=== PATIENT | male | born 1950 | race Caucasian/White ===

== ENCOUNTER 2016-11-13 08:26 | Day surgery (SDC) | payer MEDICARE, OTHER ==
[~2016-11-13 08:26] MED LIST: 5FU; AUGMENTIN 875-1 EAC2 PO; CELEXA20 M2 PO; COLACE100 M1 PO; LEXAPRO10 M2 PO; LEXAPRO10 MG; MIRALAX17 G2 PO; NORCO 5-325 TA1 EACH PO; OMEPRAZOLE20 M3 PO; PEPCID20 MG; PERCOCET 5-3251 EACH PO; STOP HOME MEDICATION; TOPROL XL25 M1 PO; TRAZODONE HCL50 M1 PO; XANAX0.5 M1 PO
[2016-11-13 09:18] LABS: BASO % 0.5 % (0-2); EOS % 4.7 % (0-7); EOSINOPHIL ABSOLUTE COUNT 0.3 tho/cmm (0.0-0.7); HCT-HEMATOCRIT 34.4 % (36.0-53.5); HGB-HEMOGLOBIN 10.3 gm/dl (13.5-17.0); IMMATURE GRANULOCYTES ABSOLUTE 0.01 tho/cmm (0-0.03); IMMATURE GRANULOCYTES PERCENT 0.2 % (0-0.3); LYMPH % 21.1 % (20-45); LYMPH ABSOLUTE COUNT 1.2 tho/cmm (0.8-4.5); MCHC MEAN CORPUSCULAR HGB CONC 29.9 % (32.0-36.0); MCV (MEAN CELL VOLUME) 73.5 fl (82.0-96.0); MEAN PLATELET VOLUME 9.9 cmc (9.4-12.4); MONO % 3.8 % (0-12); MONOCYTE ABSOLUTE COUNT 0.2 tho/cmm (0.0-1.2); NEUTROPHIL ABSOLUTE COUNT 3.9 tho/cmm (1.6-8.0); NEUTROPHIL-AUTOMATED 3.9 tho/cmm (1.6-8.0); NEUTROPHILS % 69.7 % (40-80); PLATELET COUNT 287 tho/cmm (150-450); RED BLOOD COUNT 4.68 mil/cmm (4.40-5.70); WHITE BLOOD COUNT 5.6 tho/cmm (4.0-10.0)
[2016-11-13 09:19] LABS: INR 1.2 INR (0.9-1.1); PROTHROMBIN TIME 13.9 SECONDS (9.0-13.6)
[2016-11-13 09:30] LABS: ALB/GLOB RATIO 0.9 (0.8-2.0); ALBUMIN 3.3 g/dl (3.5-5.0); ALKALINE PHOSPHATASE 180 U/L (33-138); ALT/SGPT 29 U/L (12-78); ANION GAP 12 mmol/L (0-20); AST/SGOT 29 U/L (10-40); BILIRUBIN,TOTAL 0.7 mg/dl (0.0-1.5); BLOOD UREA NITROGEN 10 mg/dl (6-24); CALCIUM 8.3 mg/dl (8.5-10.5); CARBON DIOXIDE-VENOUS 25 mmol/L (22-32); CHLORIDE 111 mmol/l (96-110); CREATININE 0.62 mg/dl (0.60-1.30); GLUCOSE 91 mg/dL (70-110); POTASSIUM 3.8 mmol/L (3.7-5.1); SODIUM 144 mmol/L (135-145); eGFR VALUE FOR BLACK >90 mL/Min
[2017-01-09] MEDS ORDERED: CIPRO500 M2 PO (08:21)
[2017-01-09] MEDS ORDERED: MEDROL4 M2 PO (08:22)
[2017-01-09] MEDS ORDERED: PERCOCET 5-3251 EACH PO (08:30)
[2017-03-07] MEDS ORDERED: AUGMENTIN 875-1 EAC2 PO (12:02)
[2017-03-07] MEDS ORDERED: ACIDOPHILUS1 EAC3 PO (12:03)
== END 2016-11-13 18:40 ==
LOC: RADSP 08:26 → SHSC 08:28 → PACU 12:43 → SHSC 14:05
PROVIDERS: Radiology Diagnostic Radiology
PROC: 04L33DZ Occlusion of Hepatic Artery with Intraluminal Device, Percutaneous Approach (ICD-10-PCS; principal; 2016-11-13)
DX: C78.7 Secondary malignant neoplasm of liver and intrahepatic bile duct (principal); F41.9 Anxiety disorder, unspecified; F32.9 Major depressive disorder, single episode, unspecified; H91.90 Unspecified hearing loss, unspecified ear; Z87.19 Personal history of other diseases of the digestive system; Z87.891 Personal history of nicotine dependence; Z85.038 Personal history of other malignant neoplasm of large intestine; Z90.49 Acquired absence of other specified parts of digestive tract; Z79.899 Other long term (current) drug therapy; Z80.8 Family history of malignant neoplasm of other organs or systems; Z98.890 Other specified postprocedural states
CPT/HCPCS: A9540; C1769; C1887; J1100; J1200; J1956; J2405; J7030; Q9967

== ENCOUNTER 2016-12-04 10:35 | Day surgery (SDC) | payer MEDICARE, OTHER ==
[2016-12-04 11:37] LABS: INR 1.2 INR (0.9-1.1)
[2016-12-04 12:06] LABS: ALB/GLOB RATIO 0.8 (0.8-2.0); ALBUMIN 2.6 g/dl (3.5-5.0); ALKALINE PHOSPHATASE 155 U/L (33-138); ALT/SGPT 20 U/L (12-78); ANION GAP 12 mmol/L (0-20); AST/SGOT 25 U/L (10-40); BILIRUBIN,TOTAL 0.5 mg/dl (0.0-1.5); BLOOD UREA NITROGEN 9 mg/dl (6-24); CALCIUM 7.1 mg/dl (8.5-10.5); CARBON DIOXIDE-VENOUS 21 mmol/L (22-32); CHLORIDE 116 mmol/l (96-110); CREATININE 0.45 mg/dl (0.60-1.30); GLUCOSE 76 mg/dL (70-110); POTASSIUM 3.6 mmol/L (3.7-5.1); SODIUM 145 mmol/L (135-145); eGFR VALUE FOR BLACK >90 mL/Min
[2016-12-05 05:30] LABS: BASO % 0.1 % (0-2); HCT-HEMATOCRIT 30.7 % (36.0-53.5); HGB-HEMOGLOBIN 9.2 gm/dl (13.5-17.0); IMMATURE GRANULOCYTES ABSOLUTE 0.02 tho/cmm (0-0.03); IMMATURE GRANULOCYTES PERCENT 0.2 % (0-0.3); LYMPH % 6.8 % (20-45); LYMPH ABSOLUTE COUNT 0.8 tho/cmm (0.8-4.5); MCH (MEAN CORPUSCULAR HGB) 22.3 pg (28.0-32.0); MCV (MEAN CELL VOLUME) 74.3 fl (82.0-96.0); MEAN PLATELET VOLUME 9.9 cmc (9.4-12.4); MONO % 6.5 % (0-12); MONOCYTE ABSOLUTE COUNT 0.8 tho/cmm (0.0-1.2); NEUTROPHIL ABSOLUTE COUNT 10.7 tho/cmm (1.6-8.0); NEUTROPHIL-AUTOMATED 10.7 tho/cmm (1.6-8.0); NEUTROPHILS % 86.4 % (40-80); PLATELET COUNT 248 tho/cmm (150-450); RED BLOOD COUNT 4.13 mil/cmm (4.40-5.70); RED CELL DISTRIBUTION WIDTH 21.7 % (12.4-16.4); WHITE BLOOD COUNT 12.4 tho/cmm (4.0-10.0)
[2016-12-05 05:48] LABS: ANION GAP 12 mmol/L (0-20); BLOOD UREA NITROGEN 14 mg/dl (6-24); CALCIUM 8.2 mg/dl (8.5-10.5); CARBON DIOXIDE-VENOUS 24 mmol/L (22-32); CHLORIDE 107 mmol/l (96-110); CREATININE 0.64 mg/dl (0.60-1.30); POTASSIUM 3.7 mmol/L (3.7-5.1); SODIUM 139 mmol/L (135-145); eGFR VALUE FOR BLACK >90 mL/Min
[2016-12-05 05:53] LABS: GLUCOSE 130 mg/dL (70-110)
[2016-12-05] MEDS ORDERED: CIPRO500 M2 PO (12:00)
[2016-12-05] MEDS ORDERED: MEDROL4 M1 (12:01)
[2016-12-05] MEDS ORDERED: PROMETHAZINE HC25 M3 PO (12:03)
[2017-01-09] MEDS ORDERED: CIPRO500 M2 PO (08:21)
[2017-01-09] MEDS ORDERED: MEDROL4 M2 PO (08:22)
[2017-01-09] MEDS ORDERED: PERCOCET 5-3251 EACH PO (08:30)
[2017-03-07] MEDS ORDERED: AUGMENTIN 875-1 EAC2 PO (12:02)
[2017-03-07] MEDS ORDERED: ACIDOPHILUS1 EAC3 PO (12:03)
== END 2016-12-05 12:30 ==
LOC: RADSP 10:35 → SHSC 10:36 → 5WF 17:05
PROVIDERS: Internal Medicine; Radiology Diagnostic Radiology
PROC: B4121ZZ Fluoroscopy of Hepatic Artery using Low Osmolar Contrast (ICD-10-PCS; principal; 2016-12-04)
PROC: 04L33ZZ Occlusion of Hepatic Artery, Percutaneous Approach (ICD-10-PCS; 2016-12-04)
DX: C78.7 Secondary malignant neoplasm of liver and intrahepatic bile duct (principal); F41.9 Anxiety disorder, unspecified; F32.9 Major depressive disorder, single episode, unspecified; K21.9 Gastro-esophageal reflux disease without esophagitis; K44.9 Diaphragmatic hernia without obstruction or gangrene; F17.290 Nicotine dependence, other tobacco product, uncomplicated; R53.83 Other fatigue; R19.7 Diarrhea, unspecified; R11.0 Nausea; G47.00 Insomnia, unspecified; Z79.899 Other long term (current) drug therapy; Z88.8 Allergy status to other drugs, medicaments and biological substances; Z98.890 Other specified postprocedural states; Z93.3 Colostomy status
CPT/HCPCS: C1887; J1100; J1200; J1956; J2405; Q9967